=== PATIENT | male | born 1955 | race Caucasian/White ===

== ENCOUNTER 2020-12-07 01:58 | Emergency (ER) | payer OTHER, SELFPAY ==
--- NOTE | 2020-12-07 02:01 | ED.FALL ---
HPI - Fall General Chief Complaint: Fall Stated Complaint: fell at home cut on nose/bleeding Time Seen by Provider: 12/07/20 02:00 Source: patient Mode of arrival: Ambulatory Limitations: no limitations History of Present Illness HPI Narrative: 65-year-old male nonsmoker without chronic medical problems presents with a chief complaint of an accidental fall from bed and nose laceration. He states that he was asleep and having a dream that caused him to jump out of bed and in doing so he fell and hit his nose on what he thinks was the counter. He denies any loss of consciousness, nausea or vomiting. He denies any neck or back pain and is otherwise well and free of complaint. He has a large deep laceration on the bridge of his nose. He states he has no trouble breathing through both nostrils. His tetanus will need to be updated. complaint: fall Onset (ago): minute(s) Fall from: out of bed Fall witnessed: no Place fall occurred: home Loss of consciousness: none Prolonged down time: no Symptoms prior to fall: none Location of injury: face Severity: moderate Quality: burning Related Data Previous Rx's Medication Instructions Recorded cephalexin 500 mg PO Q6H 7 Days #28 cap 12/07/20 Allergies Allergy/AdvReac Type Severity Reaction Status Date / Time No Known Drug Allergies Allergy Verified 12/07/20 02:16 Review of Systems Constitutional Constitutional: Denies chills, Denies fatigue, Denies fever(s), Denies frequent falls, Denies lethargy and Denies weakness Eyes Eyes: Denies change in vision, Denies eye discharge, Denies irritation and Denies loss of vision ENT Ears, Nose, Mouth, and Throat: Denies change in voice, Denies dizziness, Reports facial pain, Denies neck pain, Denies sore throat and Denies throat swelling Cardiovascular Cardiovascular: Denies chest pain, Denies irregular heart rhythm, Denies lightheadedness, Denies palpitations, Denies dyspnea, Denies dyspnea on exertion and Denies orthopnea Respiratory Respiratory: Denies cough, Denies dyspnea, Denies dyspnea on exertion and Denies wheezing Gastrointestinal Gastrointestinal: Denies abdominal pain, Denies change in bowel habits, Denies diarrhea, Denies nausea and Denies vomiting Musculoskeletal Musculoskeletal: Denies neck pain and Denies numbness Integumentary/Breasts Skin/Breast: Denies pruritus, Denies erythema, Denies rash and Reports wounds Neurologic Neurologic: Denies behavioral changes, Denies confusion, Denies dizziness, Denies frequent falls, Denies loss of vision, Denies numbness and Denies weakness Psychiatric Psychiatric: Denies anxiety, Denies behavioral changes, Denies confusion, Denies depression, Denies homicidal ideation and Denies suicidal ideation Endocrine Endocrine: Denies fatigue, Denies flushing and Denies palpitations Hematologic/Lymphatic Hematologic/Lymphatic: Denies easy bruising Allergic/Immunologic Allergic/Immunologic: Denies urticaria, Denies throat swelling and Denies wheezing Patient History Social History Smoking Status: Current every day smoker Exam Narrative Exam Narrative: GEN: AOx3 and in mild distress HEAD: Deep complex 3.0cm laceration on bridge of nose, no FB noted. Otherwise no obvious abnormal findings. No depressed skull fracture. EYES: Pupils are equal, round, and reactive to light and accommodation. Extraoccular muscles are intact bilaterally. There is no subconjunctival hemorrhage or exudate. ENT: Laceration as above. Dried blood B/L nares. No nasal septal hematoma CHEST: Lungs are clear to auscultation bilaterally and free of wheezes, rales, or rhonchi. Heart rate is regular rhythm, there are no murmurs, clicks, rubs, or gallops. There is no chest wall tenderness. ABD: Abdomen is soft and nontender. There is no guarding or rebound. Bowel sounds are normal in all 4 quadrants. There is no mass or organomegaly. EXT: Full painless ROM of all extremities with no loss of sensation or strength. SKIN: Warm, pink, and dry. No erythema or rash Initial Vital Signs Initial Vital Signs: Vital Signs Temperature 97.7 F 12/07/20 02:17 Pulse Rate 85 12/07/20 02:17 Respiratory Rate 17 12/07/20 02:17 Blood Pressure 121/64 12/07/20 02:17 Pulse Oximetry 98 12/07/20 02:17 Procedures Laceration Repair Laceration 1: Site: face Size (cm): 3 Description: flap Depth: involves muscle layer Local Anesthetic: lidocaine 1% and with bicarb Amount of anesthesia used (mL): 4 Pre-repair: wound explored, irrigated extensively and deep structures intact Skin layer closed with: nylon Size (cm): 6-0 Number of sutures: 5 Technique: simple, interrupted Subcutaneous layer closed with: vicryl Size: 5-0 Number of sutures: 1 Technique: simple, interrupted Course Orders Ordered: Discontinued Medications Diphtheria/Tetanus/Acell Pertussis (Tet,Diph,Pertuss(Acell),Vac/Pf 0.5 Ml Syringe) 0.5 ml IM .ONCE ONE Stop: 12/07/20 02:14 Last Admin: 12/07/20 02:26 Dose: 0.5 ml Documented by: NORBERTO Lidocaine/Sodium Bicarbonate (Lido 1%/Sod Bicarb 8.4% (10ml) 10 Ml Syringe) 10 ml INJ NOW ONE Stop: 12/07/20 02:14 Last Admin: 12/07/20 02:27 Dose: 10 ml Documented by: NORBERTO Vital Signs Vital signs: Vital Signs - 8 hr 12/07/20 02:17 Temperature 97.7 F Pulse Rate 85 Respiratory Rate 17 Blood Pressure 121/64 Pulse Oximetry 98 Discharge Plan Departure Patient Disposition: Home Clinical Impression: Laceration of nose Qualifiers: Encounter type: initial encounter Qualified Code(s): S01.21XA - Laceration without foreign body of nose, initial encounter Instructions: DI for Laceration Repair Activity Restrictions/Additional Instructions: *You have been diagnosed with [fall with complex nasal laceration] *What to do: *Please continue to take your regular medications as directed. [x ] New medication prescriptions sent to your pharmacy: [[facility] in [place] ] [ ] New medication written as a paper prescription [ ] No new medications given *Since you do not have a primary care provider please contact the [facility] Resource line at [phone]. They will ask some questions about your medical history and help get you set up with a doctor in the community. *Also, I've given you contact info for the local ENT office in the event that you have trouble following up with a PCP *Return to Emergency Department if you should have any new, worsening or concerning symptoms, such as [fever greater than 101 F, shaking chills, worsening pain, persistent vomiting or other bothersome symptoms] Please keep the wound clean and dry to the best of your ability. Please monitor for signs of infection such as redness to the skin or increasing pain. Have the sutures removed by your doctor in about 7 days. If you are unable to get into your doctor, we would be happy to remove the sutures in that same timeframe. Prescriptions: New cephalexin 500 mg capsule 500 mg PO Q6H 7 Days Qty: 28 RF: 0 Referrals: [facility] [Outside] Gregg Mitchell MD [Physician] -
[2020-12-07 02:17] VITALS: BP 121/64; PULSE 85; RESP 17; TEMP 36.5; O2SAT 98; BMI 24.4
[2020-12-07] MEDS: TET,DIPH,PERTUSS(ACELL),VAC/PF 0.5 ML SYRINGE IM (02:26)
[2020-12-07] MEDS: LIDO 1%/SOD BICARB 8.4% (10ML) 10 ML SYRINGE INJ (02:27)
== END 2020-12-07 03:15 | disposition home or self-care (01) ==
PROVIDERS: Emergency Provider Emergency Medicine
DX: S01.21XA Laceration without foreign body of nose, initial encounter (principal); W06.XXXA Fall from bed, initial encounter; Z23 Encounter for immunization
CPT/HCPCS: 13152; 90471; 99283; 99284; 90715

== ENCOUNTER 2022-05-30 10:22 | Emergency (ER) | payer MEDICARE, OTHER, SELFPAY ==
[2022-05-30] VITALS (9 sets, daily range): BP systolic 135–186; BP diastolic 78–92; PULSE 76–94; RESP 15–24; TEMP 36.7; O2SAT 96–99; BMI 26.7
--- NOTE | 2022-05-30 10:31 | DI.RAD.S_ITS ---
PROCEDURE: XR CHEST 1V INDICATIONS: chest pain TECHNIQUE: One view of the chest was acquired. COMPARISON: None. FINDINGS: Surgical changes and devices: None. Lungs and pleura: Lungs are clear. No pleural effusions or pneumothorax. Mediastinum: Mediastinal contours appear normal. Heart size is normal. Bones and chest wall: No suspicious bony lesions. Overlying soft tissues appear unremarkable. IMPRESSION: No evidence acute pulmonary process. Dictated by: Negro Wakler M.D. on 05/30/2022 at 11:05 Approved by: Negro Walker M.D. on 05/30/2022 at 11:05
[2022-05-30 10:56] LABS: Add Manual Diff / Slide Review NO; Basophils Absolute Auto 0 /uL (0-100); Basophils Percent Auto 0.7 % (0-2); Eosinophils Absolute Auto 100 /uL (0-450); Eosinophils Percent Auto 1.1 % (2-4); Hemoglobin 14.2 g/dL (13.5-17.5); Lymphocytes Absolute Auto 1700 /uL (1100-4500); Lymphocytes Percent Auto 28.5 % (25-40); Mean Corpuscular HGB Conc 34.7 % (30-36); Mean Corpuscular Hemoglobin 32.8 PG (26-34); Mean Corpuscular Volume 94.5 fL (80-100); Monocytes Absolute Auto 700 /uL (0-900); Monocytes Percent Auto 11.6 % (3-14); Neutrophils Absolute Auto 3600 /uL (1500-7000); Neutrophils Percent Auto 58.1 % (50-75); Platelet Count 283 X10^3/uL (150-400); Red Blood Cell Count 4.33 X10^6/uL (4.5-5.9); Red Cell Distribution Width 13.4 % (11.6-14.8); White Blood Cell Count 6.1 X10^3/uL (4.5-11.0)
--- NOTE | 2022-05-30 11:23 | ED.ARRPALP ---
HPI - Arrhythmia/Palpitations General Chief Complaint: Arrhythmia/Palpitations Stated Complaint: blurry vision racing heart fatiuge Time Seen by Provider: 05/30/22 11:07 Source: patient Mode of arrival: Family Vehicle History of Present Illness HPI narrative: Patient is a 66-year-old male with history of hypothyroid presenting today with near syncopal episodes. Also states that he was hypothyroid recently got under control. However for the past 6 months he said her syncopal episode and blackening vision. He has not passed out he has no numbness tingling or weakness. He has been to the security administrator because he has blackening vision which he says he was given a clear bill of health for his eyes. He does not have halos. He has no chest pain or shortness of breath. No fevers or chills. This morning he took his blood pressure thought it was a little low and felt palpitations. He decided to come in and get re-evaluated. It that might be something vasculature. Related Data Allergies Allergy/AdvReac Type Severity Reaction Status Date / Time No Known Drug Allergies Allergy Verified 05/30/22 10:30 Review of Systems Review of Systems Narrative: GENERAL: Denies chills, fatigue, malaise, fever, sweats, travel HEENT: See HPI RESPIRATORY: Denies dyspnea, cough, wheezing, hemoptysis, sputum. CARDIOVASCULAR: Denies chest pain, palpitations, orthopnea, edema GASTROINTESTINAL: Denies nausea, vomiting, abdominal pain, diarrhea, constipation, melena. : Denies dysuria, frequency, incontinence, hematuria, urinary retention, flank pain. MUSCULOSKELETAL: Denies weakness, joint pain, or bony pain SKIN: No rash, no erythema, no pruritus NEUROLOGIC: PSYCHIATRIC: No concerning psychosocial issues. 12 point review of systems is negative except for those stated above and HPI Patient History Social History Smoking Status: Current every day smoker Smoking Status: Current every day smoker alcohol intake frequency: a few times a week Alcohol type: beer Substance Use Type: does not use Exam Initial Vital Signs Initial Vital Signs: Vital Signs Pulse Rate 90 05/30/22 10:30 Blood Pressure 153/92 H 05/30/22 10:30 Pulse Oximetry 98 05/30/22 10:30 GENERAL: Alert pleasant 66-year-old male HEENT: Head atraumatic,EOMI, pupils reactive, no peripheral visual loss face symmetric, moist mucous membranes CARDIOVASCULAR: Regular rate and rhythm without murmurs, rubs or gallops. RESPIRATORY: Breath sounds equal bilaterally, no wheezes rales or rhonchi. ABDOMEN: Soft, nontender. Normoactive bowel sounds all 4 quadrants. No guarding or rebound. EXTREMITIES: Normal range of motion, no clubbing or edema. Neurovascularly intact NEUROLOGICAL: Alert and oriented x4.Normal gait and speech. Cranial nerves II through XII grossly intact. Good idbolg-az-qidu, good fojg-ge-jrew, strength equal bilaterally, no dysarthria or aphasia, sensation in tact to soft touch bilaterally, no visual changes, no facial droop SKIN: Warm, dry, no laceration, no petechiae, no rashes or lesions. Scores NIH Stroke Scale Level of Conciousness: Alert, keenly responsive Ask month/age: Answers both questions correctly. Open/close eyes, close hand: Performs both tasks correctly Best gaze horizontal: Normal Visual lacy: No visual loss Facial palsy: Normal symetrical movement Left arm drift: No drift for full 10 sec Right arm drift: No drift for full 10 sec Left leg drift: No drift for full 5 sec Right leg drift: No drift for full 5 sec Limb ataxia: Absent Sensory on face/arms/legs: Normal, no sensory loss Best language: No aphasia, normal Dysarthria: Normal Extinction or inattention: No abnormality Total NIH Stroke scale score: 0 Course Orders Ordered: ED Orders 05/30/22 10:30 EKG-12 Lead Stat 05/30/22 10:31 XR chest 1V Stat 05/30/22 10:32 TSH [Thyroid Stimulating Hormone] Stat 05/30/22 10:38 Complete Blood Count AUTO DIFF Stat Comprehensive Metabolic Panel Stat Lipase Stat Magnesium Stat Troponin & CK Cardiac Panel Stat 05/30/22 11:39 CT angio head and neck Stat Vital Signs Vital signs: Vital Signs - 8 hr 05/30/22 11:00 05/30/22 11:00 05/30/22 11:30 Pulse Rate 84 Respiratory Rate 19 Blood Pressure 135/83 143/78 H Pulse Oximetry 97 05/30/22 11:30 05/30/22 11:55 05/30/22 11:55 Pulse Rate 80 83 Respiratory Rate 19 22 Blood Pressure 186/90 H Pulse Oximetry 96 98 05/30/22 12:00 05/30/22 12:00 05/30/22 12:30 Pulse Rate 77 Respiratory Rate 22 Blood Pressure 160/79 H 157/84 H Pulse Oximetry 99 05/30/22 12:30 05/30/22 13:00 05/30/22 13:00 Pulse Rate 82 76 Respiratory Rate 24 15 Blood Pressure 143/89 H Pulse Oximetry 97 97 05/30/22 13:30 05/30/22 13:30 Pulse Rate 76 Respiratory Rate 17 Blood Pressure 144/87 H Pulse Oximetry 98 MDM - Arrhythmia/Palpitations Lab Data Result diagrams: 05/30/22 10:38 05/30/22 10:38 Labs: Lab Results 05/30/22 05/30/22 05/30/22 Range/Units 10:32 10:38 10:38 WBC 6.1 (4.5-11.0) X10^3/uL RBC 4.33 L (4.5-5.9) X10^6/uL Hgb 14.2 (13.5-17.5) g/dL Hct 41.0 (41-53) % MCV 94.5 (80-100) fL MCH 32.8 (26-34) PG MCHC 34.7 (30-36) % RDW 13.4 (11.6-14.8) % Plt Count 283 (150-400) X10^3/uL Neut % (Auto) 58.1 (50-75) % Lymph % (Auto) 28.5 (25-40) % Emery % (Auto) 11.6 (3-14) % Eos % (Auto) 1.1 L (2-4) % Baso % (Auto) 0.7 (0-2) % Neut # (Auto) 3600 (3855-9397) /uL Lymph # (Auto) 1700 (3521-0324) /uL Emery # (Auto) 700 (0-900) /uL Eos # (Auto) 100 (0-450) /uL Baso # (Auto) 0 (0-100) /uL Sodium 139 (137-145) mmol/L Potassium 4.3 (3.4-5.1) mmol/L Chloride 102 (98-107) mmol/L Carbon Dioxide 27 (22-32) mmol/L BUN 16 (9-20) mg/dL Creatinine 1.25 (0.66-1.25) mg/dL Estimated GFR > 60 (>60) mL/min BUN/Creatinine Ratio 12.8 (6-22) Glucose 82 (80-110) mg/dL Calcium 9.7 (8.4-10.2) mg/dL Magnesium 2.2 (1.6-2.3) mg/dL Total Bilirubin 0.5 (0.2-1.3) mg/dL AST 30 (17-59) IU/L ALT 33 (<50) IU/L Alkaline Phosphatase 73 (38-126) U/L Total Creatine Kinase 104 (55-170) U/L CK-MB (CK-2) 0.81 (<2.37) ng/mL CK-MB (CK-2) Rel Index 0.8 L (1.5-5.0) % Troponin I < 0.012 (0.01-0.034) ng/mL Total Protein 8.7 H (6.3-8.2) g/dL Albumin 4.7 (3.5-5.0) g/dL Globulin 4.0 (1.7-4.1) g/dL Albumin/Globulin Ratio 1.2 (1.0-2.8) Lipase 90 (23-300) U/L TSH 0.509 (0.47-4.68) uIU/mL Imaging Data CTA - brain/neck: Radiologist's Impresson: ?Braulio Benson MR#: [id number] : 1955 Acct:[id number] Age/Sex: 66 / M Date of Service: 05/30/22 Loc: ED Accession Number: [id number] ?? Procedure: CT angio head and neck Ordering Provider: Dania Saba D.O. PROCEDURE:? CT ANGIO HEAD AND NECK ? INDICATIONS:? bilateral decreased? vision off and on ? TECHNIQUE:? Pre-contrast 4.5 mm thick sections acquired from the foramen magnum to the vertex.? After the administration of intravenous contrast, 1 mm thick sections acquired from the aortic arch through the [place] of [place].? Post-contrast 4.5 mm thick sections then re-acquired from the foramen magnum to the vertex.? 3-dimensional uebqzwe-tsrhrsnpz-brszekkpoo (MIP) and/or volume rendering reformats were acquired of the central intracranial vasculature and neck separately. For radiation dose reduction, the following was used:? automated exposure control, adjustment of mA and/or kV according to patient size.? ? COMPARISON:? None. ? FINDINGS:? Image quality:? Excellent ? BRAIN:? CSF spaces:? Ventricles are normal in size and shape.? Basal cisterns are patent.? No extra-axial fluid collections.? ? Brain:? No midline shift.? No intracranial bleeds or masses.? Goodwin-white matter interface appears intact.? ? Skull and face:? Calvarium and facial bones appear intact, without suspicious lesions.? Orbits appear normal.? ? Sinuses:? Sinuses and mastoids are clear.? ? HEAD CT ANGIOGRAPHY:? Anterior circulation:? Intracranial internal carotid arteries are normal in size and flow.? The flow within the paired anterior cerebral arteries is normal and symmetric.? The flow within the middle cerebral arteries is normal and symmetric.? The anterior communicating artery is seen.? No aneurysms are seen.? ? Posterior circulation:? Visualized portions of the vertebral arteries demonstrate normal caliber, and join to form a normal appearing basilar artery.? Flow within the posterior cerebral arteries is normal and symmetric.? No aneurysms are seen.? ? NECK CT ANGIOGRAPHY:? Carotid system:? The great vessels demonstrate a variant anatomy, in which the left vertebral artery arises as an independent vessel as they arise from the aortic arch.? The origins of the common carotid arteries appear patent.? The common carotid arteries demonstrate normal caliber and courses.? Mild carotid bifurcation and proximal internal carotid calcification with less than 50% proximal internal carotid artery stenosis. ? Posterior circulation:? The origins of the vertebral arteries both appear widely patent.? The more superior extracranial portions of both vertebral arteries also demonstrate normal courses and calibers.? They join to form a normal appearing basilar artery.? ? Soft tissues:? Visualized neck soft tissues demonstrate no suspicious abnormalities.? Mild centrilobular emphysema.? ? Bones:? No suspicious bony lesions.? Visualized cervical spine appears normally aligned.? Cervical spondylosis.? Canal stenosis at C5-C6.? Significant multilevel bony foraminal narrowing. ? ? IMPRESSION:? ? 1. No evidence acute stroke, hemorrhage, or mass. ? 2. Unremarkable CTA head.? No stenosis, aneurysm, occlusion, or focal filling defect. ? 3. Mild bilateral proximal internal carotid artery stenosis, less than 50%. ? 4. Mild centrilobular emphysema. ? 5. Cervical spondylosis with canal stenosis and multilevel foraminal narrowing.? ? Any quantitative measurements of stenosis were performed using NASCET criteria.? ? ? Dictated by: Negro Walker M.D. on 05/30/2022 at 12:20? Chest x-ray: Radiologist's Impresson: : Braulio Benson MR#: [id number] : 1955 Acct:[id number] Age/Sex: 66 / M Date of Service: 05/30/22 Loc: ED Accession Number: [id number] ?? Procedure: XR chest 1V Ordering Provider: Dania Saba D.O. PROCEDURE:? XR CHEST 1V ? INDICATIONS:? chest pain ? TECHNIQUE:? One view of the chest was acquired.? ? COMPARISON:? None. ? FINDINGS:? ? Surgical changes and devices:? None.? ? Lungs and pleura:? Lungs are clear.? No pleural effusions or pneumothorax.? ? Mediastinum:? Mediastinal contours appear normal.? Heart size is normal.? ? Bones and chest wall:? No suspicious bony lesions.? Overlying soft tissues appear unremarkable.? ? IMPRESSION:? No evidence acute pulmonary process. ? ? ? ECG Data Interpretation: Normal sinus rhythm rate 82 NC interval 208 QRS [address] changes MDM Narrative Medical decision making narrative: Patient has had ongoing bilateral peripheral visual loss which is transient for number of months already evaluated by ophthalmology he has no focal deficits he came in today for some palpitations. He is not short of breath he has been told by multiple providers that he needs his carotids check so he came in today for that. CT angio was negative. No signs of large vessel occlusion. Sometimes it is positional when he has this transient tunnel-like vision sometimes it is with exertion and sometimes it is at rest. He never passes out. It has been chronic and ongoing today blood work is reassuring CT angio is negative. Discharge Plan Departure Patient Disposition: Home Clinical Impression: Palpitations Instructions: DI for Palpitations Activity Restrictions/Additional Instructions: *You have been diagnosed with palpitations *What to do: At this time her thyroid seems to within reasonable range. No evidence of vascular problem on your CT scan today. I do encourage you to get a Holter monitor monitor for palpitations possibly further workup with her primary care provider *Continue to take medications as directed *Follow up with your primary care provider in 2-3 days or call [phone] *Return to ER if you should have passing out weakness numbness tingling blackening vision or any new, worsening or concerning symptoms Referrals: Damion Shabazz PA-C [Primary Care Provider] - Visit Report Forms: Patient Portal/API
[2022-05-30 11:25] LABS: Alanine Aminotransferase 33 IU/L (<50); Albumin 4.7 g/dL (3.5-5.0); Albumin Globulin Ratio 1.2 (1.0-2.8); Alkaline Phosphatase 73 U/L (38-126); Aspartate Aminotransferase 30 IU/L (17-59); BUN Creatinine Ratio 12.8 (6-22); Bilirubin Total 0.5 mg/dL (0.2-1.3); Blood Urea Nitrogen 16 mg/dL (9-20); Calcium 9.7 mg/dL (8.4-10.2); Carbon Dioxide 27 mmol/L (22-32); Chloride 102 mmol/L (98-107); Creatine Kinase 104 U/L (55-170); Estimated Glomerular Filt Rate > 60 mL/min (>60); Glucose 82 mg/dL (80-110); HEMOLYSIS < 15 (0-50); Lipase 90 U/L (23-300); Magnesium 2.2 mg/dL (1.6-2.3); Potassium 4.3 mmol/L (3.4-5.1); Sodium 139 mmol/L (137-145); Total Protein 8.7 g/dL (6.3-8.2)
[2022-05-30 11:36] LABS: Troponin I < 0.012 ng/mL (0.01-0.034)
--- NOTE | 2022-05-30 11:39 | DI.CT.S_ITS ---
PROCEDURE: CT ANGIO HEAD AND NECK INDICATIONS: bilateral decreased vision off and on TECHNIQUE: Pre-contrast 4.5 mm thick sections acquired from the foramen magnum to the vertex. After the administration of intravenous contrast, 1 mm thick sections acquired from the aortic arch through the [place] of [place]. Post-contrast 4.5 mm thick sections then re-acquired from the foramen magnum to the vertex. 3-dimensional amhqacp-nynufxgfb-eaooffjyli (MIP) and/or volume rendering reformats were acquired of the central intracranial vasculature and neck separately. For radiation dose reduction, the following was used: automated exposure control, adjustment of mA and/or kV according to patient size. COMPARISON: None. FINDINGS: Image quality: Excellent BRAIN: CSF spaces: Ventricles are normal in size and shape. Basal cisterns are patent. No extra-axial fluid collections. Brain: No midline shift. No intracranial bleeds or masses. Goodwin-white matter interface appears intact. Skull and face: Calvarium and facial bones appear intact, without suspicious lesions. Orbits appear normal. Sinuses: Sinuses and mastoids are clear. HEAD CT ANGIOGRAPHY: Anterior circulation: Intracranial internal carotid arteries are normal in size and flow. The flow within the paired anterior cerebral arteries is normal and symmetric. The flow within the middle cerebral arteries is normal and symmetric. The anterior communicating artery is seen. No aneurysms are seen. Posterior circulation: Visualized portions of the vertebral arteries demonstrate normal caliber, and join to form a normal appearing basilar artery. Flow within the posterior cerebral arteries is normal and symmetric. No aneurysms are seen. NECK CT ANGIOGRAPHY: Carotid system: The great vessels demonstrate a variant anatomy, in which the left vertebral artery arises as an independent vessel as they arise from the aortic arch. The origins of the common carotid arteries appear patent. The common carotid arteries demonstrate normal caliber and courses. Mild carotid bifurcation and proximal internal carotid calcification with less than 50% proximal internal carotid artery stenosis. Posterior circulation: The origins of the vertebral arteries both appear widely patent. The more superior extracranial portions of both vertebral arteries also demonstrate normal courses and calibers. They join to form a normal appearing basilar artery. Soft tissues: Visualized neck soft tissues demonstrate no suspicious abnormalities. Mild centrilobular emphysema. Bones: No suspicious bony lesions. Visualized cervical spine appears normally aligned. Cervical spondylosis. Canal stenosis at C5-C6. Significant multilevel bony foraminal narrowing. IMPRESSION: 1. No evidence acute stroke, hemorrhage, or mass. 2. Unremarkable CTA head. No stenosis, aneurysm, occlusion, or focal filling defect. 3. Mild bilateral proximal internal carotid artery stenosis, less than 50%. 4. Mild centrilobular emphysema. 5. Cervical spondylosis with canal stenosis and multilevel foraminal narrowing. Any quantitative measurements of stenosis were performed using NASCET criteria. Dictated by: Negro Walker M.D. on 05/30/2022 at 12:20 Approved by: Negro Walker M.D. on 05/30/2022 at 12:26
[2022-05-30 11:40] LABS: CKMB % Relative Index 0.8 % (1.5-5.0); Creatine Kinase MB 0.81 ng/mL (<2.37)
[2022-05-30 12:27] LABS: Thyroid Stimulating Hormone 0.509 uIU/mL (0.47-4.68)
== END 2022-05-30 14:08 | disposition home or self-care (01) ==
PROVIDERS: Emergency Provider Emergency Medicine; PCP Student in an Organized Health Care Education/Training Program
DX: R00.2 Palpitations (principal); R07.9 Chest pain, unspecified; H53.9 Unspecified visual disturbance
CPT/HCPCS: 36415; 70496; 70498; 71045; 80053; 82550; 82553; 83690; 83735; 84443; 84484; 85025; 93005; 99283; 99284; Q9967

== ENCOUNTER 2023-04-29 12:39 | Emergency (ER) | payer MEDICARE, OTHER, SELFPAY ==
[2023-04-29 12:39] VITALS: BP 168/84; PULSE 76; RESP 16; TEMP 36.1; O2SAT 98; BMI 27.1
--- NOTE | 2023-04-29 12:48 | DI.RAD.S_ITS ---
PROCEDURE: XR CHEST 2V INDICATIONS: SOB TECHNIQUE: 2 views of the chest were acquired. COMPARISON: [facility], CR, XR CHEST 1V, 05/30/2022, 10:38. FINDINGS: Surgical changes and devices: None. Lungs and pleura: Lungs are clear. Small left pleural effusion. No pneumothorax. Mediastinum: Mediastinal contours are normal. Heart size is normal. Bones and chest wall: No suspicious bony abnormalities. Soft tissues appear unremarkable. IMPRESSION: Small left pleural effusion. Dictated by: Shemar Suresh M.D. on 04/29/2023 at 13:04 Approved by: Shemar Suresh M.D. on 04/29/2023 at 13:04
--- NOTE | 2023-04-29 13:35 | ED.CHESTPAIN ---
HPI - Chest Pain General Chief Complaint: Chest Pain Stated Complaint: FELL/CHEST INJ/SOB Time Seen by Provider: 04/29/23 13:31 Source: patient Mode of arrival: Ambulatory Limitations: no limitations History of Present Illness HPI narrative: Patient is a 67-year-old male who yesterday was moving wood out of a [employer] when he states he was hit in the left side of his chest by a log. He states that since that time he has had some shortness of breath and some discomfort to his left chest. He has had a spontaneous pneumothorax in the past but that was many years ago. No fevers. Has been taking Tylenol at home. He also took some Ultram at home she thinks very much improved his symptoms. Related Data Previous Rx's Medication Instructions Recorded tramadol 50 mg tablet 50 mg PO TID PRN pain #21 tabs 04/29/23 Allergies Allergy/AdvReac Type Severity Reaction Status Date / Time No Known Drug Allergies Allergy Verified 04/29/23 13:01 Review of Systems Constitutional Constitutional: Reports system reviewed and no additional complaints, except as documented Cardiovascular Cardiovascular: Reports system reviewed and no additional complaints, except as documented Respiratory Respiratory: Reports system reviewed and no additional complaints, except as documented Gastrointestinal Gastrointestinal: Reports system reviewed and no additional complaints, except as documented Integumentary/Breasts Skin/Breast: Reports system reviewed and no additional complaints, except as documented Neurologic Neurologic: Reports system reviewed and no additional complaints, except as documented Hematologic/Lymphatic On Anticoagulants: No Patient History Social History Smoking Status: Current every day smoker Smoking Status: Current every day smoker tobacco type: vaping alcohol intake frequency: a few times a week Alcohol type: beer Substance Use Type: does not use Exam Initial Vital Signs Initial Vital Signs: Vital Signs Temperature 97 F L 04/29/23 12:39 Pulse Rate 76 04/29/23 12:39 Respiratory Rate 16 04/29/23 12:39 Blood Pressure 168/84 H 04/29/23 12:39 Pulse Oximetry 98 04/29/23 12:39 Oxygen Delivery Method Room Air 04/29/23 12:39 Const General: cooperative, comfortable and No ill appearing HENMT Head: normal to inspection and normocephalic Chest Chest: No crepitus and tenderness (Left-sided ribs) Resp Effort & Inspection: normal respiratory effort Auscultation: clear to auscultation bilaterally Cardio Rate: regular rate Rhythm: regular rhythm Skin General: no rashes or lesions noted Neuro General: patient alert, patient awake and moves all extremities Course Orders Ordered: ED Orders 04/29/23 12:48 XR chest 2V Stat 04/29/23 13:02 EKG-12 Lead Stat Vital Signs Vital signs: Vital Signs - 8 hr 04/29/23 12:39 Temperature 97 F L Pulse Rate 76 Respiratory Rate 16 Blood Pressure 168/84 H Pulse Oximetry 98 Oxygen Delivery Method Room Air MDM - Chest Pain Imaging Data Chest x-ray: Radiologist's Impression: PROCEDURE:? XR CHEST 2V ? INDICATIONS:? SOB ? TECHNIQUE:? 2 views of the chest were acquired.? ? COMPARISON:? [facility], , XR CHEST 1V, 05/30/2022, 10:38. ? FINDINGS:? ? Surgical changes and devices:? None.? ? Lungs and pleura:? Lungs are clear.? Small left pleural effusion.? No pneumothorax. ? Mediastinum:? Mediastinal contours are normal.? Heart size is normal.? ? Bones and chest wall:? No suspicious bony abnormalities.? Soft tissues appear unremarkable.? ? ? IMPRESSION:? Small left pleural effusion.? ECG Data Attestation: I personally reviewed and interpreted this ECG as follows: Interpretation: Sinus rhythm Ventricular rate is 77 First-degree AV block AR interval 214 milliseconds Normal QRS Normal QTC No ST T wave changes [facility] Narrative Medical decision making narrative: Chest x-ray shows no acute pathology. He does have tenderness to the left lower chest wall. No pneumothorax. No pneumonia. Lungs are clear. No fevers. Tramadol did seem to help his symptoms we will provide a prescription for this. He was given return precautions. He expressed understanding and agreement. Discharge Plan Departure Patient Disposition: Home Clinical Impression: Chest wall pain Activity Restrictions/Additional Instructions: It is important that you occasionally take deep breaths. Use the pain medication as needed. Return to the emergency department for new or worsening symptoms like we discussed. Prescriptions: New tramadol 50 mg tablet 50 mg PO TID PRN (Reason: pain) Qty: 21 0RF Referrals: Damion Shabazz PA-C [Primary Care Provider] - Stand Alone Forms: Patient Portal/API
[2023-04-29 13:48] VITALS: BP 131/72; PULSE 81; RESP 19; O2SAT 95
--- NOTE | 2023-04-29 13:50 | PC.NURSE ---
Patient evaluated, treated and discharged by provider prior to nursing assessment.
== END 2023-04-29 13:48 | disposition home or self-care (01) ==
PROVIDERS: Emergency Provider Emergency Medicine; PCP Student in an Organized Health Care Education/Training Program
DX: R07.89 Other chest pain (principal)
CPT/HCPCS: 71046; 93005; 99283; 99284